=== PATIENT | male | born 1985 | race Caucasian/White ===

== ENCOUNTER 2022-01-22 07:43 | Outpatient (CLI) | payer BC, SELFPAY ==
--- NOTE | 2022-01-22 08:00 | CRLHL7_ITS ---
For Patients: As a result of the Century Cures Act, medical imaging exams and procedure reports are released immediately into your electronic medical record. You may view this report before your referring provider. If you have questions, please contact your health care provider. Indication: Recurrent nephrolithiasis Technique: Noncontrast CT abdomen and pelvis Comparison: CT abdomen pelvis 10/12/2018 Findings: Heart size is normal. There is no pericardial effusion. 6 millimeter left lower lobe pulmonary nodule series 2, image 10 not clearly seen on the prior study The unenhanced liver demonstrates tiny too small to characterize low-attenuation lesions in the liver this is not significantly changed. Gallbladder pancreas spleen adrenal glands are unremarkable. Normal caliber abdominal aorta prostate gland unremarkable urinary bladder incompletely distended but unremarkable. Bowel is unremarkable small fat containing umbilical hernia. 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 No hydronephrosis No suspicious bony lesions are seen. Impression: 1. 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 2. 6 millimeter left lower lobe pulmonary nodule follow-up per Fleischner society guidelines. Please note that all CT scans at this facility use dose modulation, iterative reconstruction, and/or weight-based dosing when appropriate to reduce radiation dose to as low as reasonably achievable. Dictated by Radha Marin MD @ 01/22/2022 10:08:57 AM (Electronically Signed)
== END 2022-01-22 07:44 | disposition home or self-care (01) ==
LOC: CT 07:44
PROVIDERS: PCP Family Medicine; Visit Provider Family Medicine
DX: N20.0 Calculus of kidney (principal); K76.9 Liver disease, unspecified; K80.50 Calculus of bile duct without cholangitis or cholecystitis without obstruction; R91.1 Solitary pulmonary nodule
CPT/HCPCS: 74176

== ENCOUNTER 2023-05-13 09:43 | Outpatient (CLI) | payer BC, SELFPAY | END 2023-05-13 09:44 | disposition home or self-care (01) | PROVIDERS: PCP Family Medicine; Referring Provider Family Medicine; Visit Provider Family Medicine | DX: E83.59 Other disorders of calcium metabolism (principal); N29 Other disorders of kidney and ureter in diseases classified elsewhere; N20.0 Calculus of kidney | CPT/HCPCS: 81015; 87086 ==

== ENCOUNTER 2023-05-14 09:49 | Outpatient (CLI) | payer BC, SELFPAY ==
--- NOTE | 2023-05-14 10:00 | CT_ITS ---
Patient: BETHANIE ELAM Facility:?[facility] Patient ID:?[id number] Site Patient ID:?[id number]. Site :?[id number] Study:?CT-Abdomen/Pelvis WITHOUT-05/14/2023 10:12:29 AM Ordering Physician:Michael Wong Final Report: INDICATION: Right flank pain. History of stones.. TECHNIQUE: CT abdomen and pelvis without contrast. COMPARISON: Previous exam from 10/12/2018.. FINDINGS: Limited exam due to lack of IV contrast. Heart is normal in size. No pericardial or pleural effusion. Visualized lungs are clear. Multiple too small to characterize low-density liver lesions also seen on previous exam from 10/12/2018 likely hepatic cysts or small hemangiomas. Otherwise, noncontrast appearance of the spleen, gallbladder, pancreas, adrenals within normal limits. Bilateral multiple calcified renal stones, the largest in the left kidney measuring 3 millimeters. No enlarged retroperitoneal or pelvic adenopathy. No free pelvic fluid or ascites. Prostate not enlarged. Small fat containing left inguinal hernia. Urinary bladder shows no radiopaque stone. No abnormally dilated bowel loops to suggest bowel obstruction. Normal appendix. No pneumoperitoneum. No suspicious bony lesion. : Impression: Limited exam due to lack of IV contrast. 1. Bilateral nonobstructing nephrolithiasis. 2. Other findings as described above. Please note that all CT scans at this facility use dose modulation, iterative reconstruction, and/or weight-based dosing when appropriate to reduce radiation dose to as low as reasonably achievable. Dictated by Celestine Mathew MD @ 05/14/2023 10:32:29 AM Signed by:?Celestine Mathew MD @05/14/2023 10:32:29 AM (Electronic Signature)
== END 2023-05-14 09:50 | disposition home or self-care (01) ==
PROVIDERS: PCP Family Medicine; Visit Provider Family Medicine
DX: N20.0 Calculus of kidney (principal); R10.9 Unspecified abdominal pain
CPT/HCPCS: 74176